=== PATIENT | male | born 1965 | race Caucasian/White ===

== ENCOUNTER 2025-05-15 17:49 | Inpatient (IN) | payer MEDICARE, MEDICAID, SELFPAY ==
--- NOTE | 2025-05-15 18:36 | EDNOTE_ITS ---
Altered Mental Status RME/HPI General Chief Complaint: Altered Mental Status Stated Complaint: ALTERED Time Seen by Provider: 05/15/25 18:34 Arrival date/time: 05/15/25 17:49 RME / HPI RME / HPI narrative: Dr. Carmona?s Main ED Evaluation: 59yo male with a history of dementia, DM, depression BIB [facility] presents to the ED for altered mental status. Per [facility], patient has not been taking his medications for the last 2 days. Patient was found in his cell today and noted to have urinated on himself, and appeared altered. Outpatient FSBS 129. Patient denies any nausea, vomiting, chest pain, abdominal pain. NKA. Related Data Previous Rx's ?Medication ?Instructions ?Recorded sulfamethoxazole 800 1 tab PO BID #14 tabs mg-trimethoprim 160 mg tablet (Bactrim DS) Allergies Allergy/AdvReac Type Severity Reaction Status Date / Time NKA* Allergy Uncoded 01/26/11 07:57 Review of Systems Review of Systems Systems Reviewed: All systems reviewed, normal except as documented Past Medical History Past Medical History CARDIAC: Negative Congestive Heart Failure RESPIRATORY: Negative Chronic Obstructive Pulmonary Disease (COPD) GENITOURINARY: Negative Renal Disease ENDOCRINE: Negative Diabetes Mellitus Type 1 or Diabetes Mellitus Type 2 Social History SMOKING STATUS: Former smoker ED Exam Narrative Physical exam: Generally patient is alert slightly somnolent but no obvious distress, head is normocephalic atraumatic, eyes pupils midrange at approximately 6 mm and equal bilaterally and reactive, head is normocephalic atraumatic, neck shows no JVD, heart regular rate and rhythm, lungs clear to auscultation equal bilaterally, abdomen soft bowel sounds present reducible periumbilical hernia. Very minimal diffuse tenderness without rebound. Neurologic exam shows patient be alert and oriented x 3 without focal motor deficits. No ataxia. Course Quality Measures none Orders Category Date Time Status EKG (ED ONLY) *Do not use* NOW Care 05/15/25 18:45 Completed Insert IV NOW Care 05/15/25 20:[address] head/brain wo con Stat Exams 05/15/25 18:43 Completed EKG (ED Only) Stat Exams 05/15/25 18:45 Draft Acetaminophen Stat Lab 05/15/25 18:56 Completed Alcohol, Blood Medical Stat Lab 05/15/25 18:56 Completed Ammonia Stat Lab 05/15/25 18:56 Completed Beta Hydroxybutyrate Stat Lab 05/15/25 20:27 Completed CBC Stat Lab 05/15/25 18:56 Completed CMP [Comprehensive Metabolic Panel] Stat Lab 05/15/25 18:56 Completed Drug Screen,Urine Stat Lab 05/15/25 19:40 Completed Lactic Acid [Lactate (Lactic Acid)] Stat Lab 05/15/25 20:27 Completed Salicylate Stat Lab 05/15/25 18:56 Completed TSH [Thyroid Stimulating Hormone] Stat Lab 05/15/25 18:56 Completed Troponin I Stat Lab 05/15/25 18:56 Completed UA [Urinalysis] Stat Lab 05/15/25 19:40 Completed VBG [Venous Blood Gas] Stat Lab 05/15/25 21:01 Ordered Sodium Chloride 0.9% 1000 ml [Ns] 1,000 ml Med 05/15/25 20:03 Discontinued IV 999 mls/hr Sodium Chloride 0.9% 1000 ml [Ns] 1,000 ml Med 05/15/25 20:05 Discontinued IV 999 mls/hr Vital Signs Vital signs: Vital Signs Temperature 98.4 F 05/15/25 19:02 Pulse Rate 79 05/15/25 19:02 Respiratory Rate 18 05/15/25 19:02 Blood Pressure 109/73 05/15/25 19:02 Pulse Oximetry (%) 95 05/15/25 19:02 Oxygen Delivery Method Room Air 05/15/25 19:02 Altered Mental Status MDM Narrative MDM Narrative:: Scribe Attestation: 05/15/25 Monika Matthews am scribing for and in the presence of Dr. Carmona. And interpreted all labs. Patient has a very slight increased anion gap metabolic acidosis. Beta hydroxybutyrate is elevated at 4.4. Patient denies vomiting. Blood sugar was 154. Patient is uremic with an elevated BUN and creatinine. This could be causing the patient's decreased mentation. CAT scan of the brain was negative. Patient was hydrated with 2 L of IV normal saline. I did discuss this case with the hospitalist and the patient will require admission to the hospital for further treatment and evaluation. EKG showed normal sinus rhythm at a rate of 71 with normal intervals. Patient data External records reviewed:: [facility] previous records (Per chart review, patient was seen here on 02/26/24 for infected open wound.) Clinical information provided by:: patient and law enforcement Social determinants that could affect healthcare access:: none Patient has the following chronic illnesses:: dementia, DM, depression How is presenting disease/condition affected by chronic disease/condition?: caused by Evaluation data The following diagnostics were reviewed and interpreted by me:: lab results, radiology exam(s) and EKG tracing(s) Lab and/or radiology exams considered but not ordered:: none Interpretation Summary: [facility] Report Signed Patient: SMITHA MICHELLE [facility]. Record#: [id number] Birthdate: 1965 Age/Sex: 59 / M Location: [facility] Attending Dr: Ordering Physician: Pipo Carmona DO Date of Service: 05/15/25 Procedure(s): CT head/brain wo con Accession Number(s): [id number] cc: Chano Veras MD; NO PRIMARY/FAMILY,PHYSICIAN; Pipo Carmona DO~ Examination: CT brain head without contrast. 2-D sagittal coronal reconstructions Date and time of exam:May 15, 2025, 1939 hrs. Indications: Altered mental status today CTDI: vol (mGy):55 DLP: (mGycm):1169 Technique: Multiple CT axial sections of the brain have been obtained, 5 mm slice thickness. Contrast has not been administered. 2-D sagittal, coronal reconstructions have been obtained Low dose protocols were performed. One or more of the following dose reduction techniques were used; automated exposure control, adjustment of the mA and/or KV according to patient size, use of iterative reconstruction technique. Findings: No significant ventricular enlargement. Intra-axial or extra-axial hemorrhage density is not seen. No mass effect or midline shift Basal cisterns are not remarkable. Fourth ventricle is midline. Cranial vault intact. Impression: Negative for acute hemorrhage, mass effect or midline shift Advise clinical correlation and follow-up accordingly Dictated By: Chano Veras MD Signed By: <Electronically signed by Chano Veras MD in OV> 05/15/251999 Medications / Prescriptions Medications or Prescriptions considered but not ordered:: none Medication administrations:: Medication Administration History Discontinued Medications Sodium Chloride (Ns) 1,000 mls @ 999 mls/hr IV .Q1H1M ONE Stop: 05/15/25 21:03 Last Admin: 05/15/25 20:14 Dose: 999 mls/hr Documented By: TEDDY Sodium Chloride (Ns) 1,000 mls @ 999 mls/hr IV .Q1H1M ONE Stop: 05/15/25 21:05 Last Admin: 05/15/25 20:15 Dose: 999 mls/hr Documented By: TEDDY see above Consultations Consultation(s) initiated? (list below): Yes Diagnosis Differential diagnosis altered mental status: other (See MDM.) Most likely diagnosis given after review of the tests above:: see clinical impression below Admission Indicated Admission indicated?: indicated Admission Request Was there a request for admission?: Yes Admission Attestation Admission request attestation: Discussed case with [] from Hospitalist service regarding admission. Discussed patients ED course, exam findings, labs, and radiology results. The Hospitalist [agrees,declines] to accept the patient for admission. Disposition Plan Disposition Plan: Admit Discharge Plan Plan Patient Disposition: Admit Acute Care w/in Hospital Prescriptions/Referrals Prescriptions/Med Rec: No Action sulfamethoxazole-trimethoprim [Bactrim DS] 800-160 mg tablet 1 tab PO BID Qty: 14 0RF Referrals: No Primary/Family,Physician [Primary Care Provider] - In 1 week Problem List Clinical Impression: Acute uremia, Dehydration Patient/Caregiver Discharge Instructions Print Language: Beninese Stand Alone Forms: Elizabeth Award Info., Patient Portal Info Letter
--- NOTE | 2025-05-15 18:43 | XR_ITS ---
Examination: CT brain head without contrast. 2-D sagittal coronal reconstructions Date and time of exam:May 15, 2025, 1939 hrs. Indications: Altered mental status today CTDI: vol (mGy):55 DLP: (mGycm):1169 Technique: Multiple CT axial sections of the brain have been obtained, 5 mm slice thickness. Contrast has not been administered. 2-D sagittal, coronal reconstructions have been obtained Low dose protocols were performed. One or more of the following dose reduction techniques were used; automated exposure control, adjustment of the mA and/or KV according to patient size, use of iterative reconstruction technique. Findings: No significant ventricular enlargement. Intra-axial or extra-axial hemorrhage density is not seen. No mass effect or midline shift Basal cisterns are not remarkable. Fourth ventricle is midline. Cranial vault intact. Impression: Negative for acute hemorrhage, mass effect or midline shift Advise clinical correlation and follow-up accordingly
--- NOTE | 2025-05-15 18:45 | EKG_ITS ---
[facility] Test Date: 2025-05-15 Pat Name: SMITHA MICHELLE Department: Room: - Gender: Male Clerical Specialist: : 1965 Requested By: Pipo Burciaga Order Number: [id number] Reading MD: Pipo Burciaga Measurements Intervals Harmon Rate: 71 P: -67 OK: 129 QRS: 35 QRSD: 90 T: 47 QT: 374 QTc: 407 Interpretive Statements JUNCTIONAL RHYTHM LOW QRS VOLTAGE IN PRECORDIAL LEADS [QRS DEFLECTION < 1.0 mV IN CHEST LEADS] ABNORMAL RHYTHM ECG No previous ECG available for comparison /store/S0/[id number]/ecg/[id number].pdf
[2025-05-15 18:49] VITALS: BMI 37.6
[2025-05-15 19:02] VITALS: BP 109/73; PULSE 79; RESP 18; TEMP 36.9; O2SAT 95
[2025-05-15 19:34] LABS: Acetaminophen < 2.0 mcg/mL (10.0-20.0); Alanine Aminotransferase 30 U/L (10-49); Albumin, Serum 5.2 gm/dL (3.4-4.8); Albumin/Globulin Ratio 1.7 (1.2-2.2); Alcohol, Blood Medical < 3.0 mg/dL (0-10.0); Alkaline Phosphatase 78 U/L (46-116); Ammonia < 10 uMol/L (11-32); Anion Gap 17 (7-16); Aspartate Amino Transferase 21 U/L (0-34); BUN/Creatinine Ratio 29 Ratio (12-20); Bilirubin,Total 0.7 mg/dL (0.3-1.2); Blood Urea Nitrogen 52 mg/dL (9-23); Calcium 10.2 mg/dL (8.3-10.6); Calcium (Corrected) 10.2 mg/dL (8.5-10.1); Carbon Dioxide 16.2 mMol/L (20.0-31.0); Chloride 108 mMol/L (98-107); Creatinine (Component) 1.8 mg/dL (0.6-1.3); Estimated Creatinine Clearance 54.7 mL/min (>60); Globulin 3.0 gm/dL (2.3-3.5); Glucose 152 mg/dL (74-106); Osmolality,Calculated 298 (275-295); Potassium 4.9 mMol/L (3.4-5.1); Salicylate < 3.0 mg/dL; Sodium 141 mMol/L (136-145); Thyroid Stimulating Hormone 0.91 uIU/mL (0.55-4.78); Total Protein 8.2 gm/dL (5.7-8.2); Troponin I < 0.020 ng/mL (0.0-0.045); eGFR 43 See Note
[2025-05-15 19:40] LABS: Basophils # (Auto) 0.1 Thou/mm3 (0.0-0.2); Basophils % (Auto) 1 % (0-2.5); Eosinophils # (Auto) 0.3 Thou/mm3 (0.0-0.5); Eosinophils % (Auto) 2 % (0-10); Hematocrit 36.5 % (41.0-53.0); Hemoglobin 12.2 g/dL (13.5-16.0); Immature Granulocytes Auto 0.05 Thou/mm3 (0.00-0.00); Lymphocytes # (Auto) 1.7 Thou/mm3 (1.0-4.8); Lymphocytes % (Auto) 14 % (10-50); Mean Corpuscular HGB Conc 33.4 g/dl (31.0-37.0); Mean Corpuscular Hemoglobin 32.4 pg (25.0-35.0); Mean Corpuscular Volume 97 fL (80-100); Monocytes # (Auto) 1.5 Thou/mm3 (0.0-0.8); Monocytes % (Auto) 13 % (0-12); Neutrophils # (Auto) 8.3 Thou/mm3 (1.8-7.7); Neutrophils % (Auto) 70 % (37-80); Nucleated Red Blood Cell # 0.00 Thou/mm3 (0.00-0.00); Nucleated Red Blood Cell % 0 /100 WBC (0); Platelet Count 327 Thou/mm3 (140-440); RDW Standard Deviation 58.1 fL (35.1-43.9); Red Blood Count 3.77 Miln/mm3 (4.50-5.90); White Blood Count 11.9 Thou/mm3 (3.8-10.6)
[2025-05-15 19:55] LABS: Collection Type, Urine Voided; Squamous Epithelial Cell,Urine 0 /hpf (0-5)
[2025-05-15 20:07] LABS: Bacteria,Urine Rare; Bilirubin,Urine Negative (Negative); Blood,Urine Negative (Negative); Clarity,Urine Turbid (Clear/Hazy); Color,Urine Yellow (Lt Yel-Yel); Glucose, Urine Negative (Negative); Hyaline Casts,Urine < 1 /hpf (0-1); Ketones,Urine 1+ (Negative); Leukocyte Esterase,Urine Negative (Negative); Nitrite,Urine Negative (Negative); PH,Urine 6.0 (5.0-7.0); Protein,Urine 1+ (Neg - Trace); RBC,Urine 3 /hpf (0-3); Specific Gravity,Urine 1.026 (1.001-1.035); Urobilinogen,Urine Negative mg/dL (0.0-1.0); WBC,Urine 1 /hpf (0-5)
[2025-05-15 20:14] LABS: Amphetamine/Methamp Scrn,U Negative (Negative); Barbiturate Screen,Urine Negative (Negative); Benzodiazepines Screen,Urine Negative (Negative); Benzoylecgonine Screen, Ur Negative (Negative); Fentanyl Screen,Urine Negative (Negative); Opiate Screen,Urine Negative (Negative); THC Screen,Urine Negative (Negative)
[2025-05-15] MEDS: SODIUM CHLORIDE 0.9% 1000 ML 1,000 ML 999 ML IV ×2 (20:14→20:15)
[2025-05-15 20:41] LABS: Lactate (Lactic Acid) 0.9 mMol/L (0.4-2.0)
[2025-05-15 20:56] LABS: Beta Hydroxybutyrate 4.4 mmol/L (<0.6)
[2025-05-15 21:15] LABS: Base Excess, Venous 18 (-3-3); O2 Saturation, Venous 69 % (96-97); PCO2, Venous 37 mmHg (36-56); PO2, Venous 39 mmHg (15-58); pH, Venous 7.29 (7.33-7.66)
--- NOTE | 2025-05-15 22:25 | PD.RESHP ---
Documentation for date of: 05/15/25 HPI History of Present Illness History of present illness: Mr. Malcolm is 59 year-old male with past medical history of type 2 diabetes, hypertension, major depressive disorder brought in in the custody of the [facility]) to ED on 05/15/2025 for altered mental status. Per [facility], for unknown reason, past few days patient has not been taking his medication, not interacting with his cellmate as usual. Prior to that patient was very engaged in the care of his daily needs, participate in group activities and compliant to medications. Per [facility], this morning patient found in his cell looking confused, not responding to questions and had a urinary incontinence. They noted no drooling, no diaphoresis, no blank stares, no seizure-like activity, no fecal incontinence. Patient has not been in contact with sick cell mate, no fever and no flulike symptoms prior to altered mentation. However per patient file, the nurse noted that he has unspecified dementia although he was not officially diagnosed. Upon evaluation patient mentation is altered but when asked he denies nausea, vomiting, diarrhea, constipation, chest pain, headache, dizziness, body aches, urinary symptoms. ED Course: -Initial vitals were within normal with BP of 109/73, pulse 79, RR 18, temp 98.4, saturating well on room air -Labs significant for leukocytosis of WBC 11.9, VBG pH 7.29, CHEM panel shows CO2 16.2, anion gap 17, bun 52, CR 1.8, eGFR 43, bun/Cr 29, glucose 152, calcium 10.2, ammonia <10, albumin 5.2, Beta-hydroxy 4.4. UA negative for UTI. UTOX is negative -Imaging included head CT negative for acute hemorrhage or midline shift. -In the ED, patient was given 3 L of NS. Patient mentation continued to be poor is unsure about these past medical history, medication. Patient does not recall what happening this before coming to the ED. He reports no active complaints at the moment. -Patient was admitted for acute encephalopathy evaluation and management. Review of Systems Review of systems otherwise negative except what is mentioned above. Past Medical History: Family History: Unable to obtain Surgical History: Unable to obtain due to patient mentation Social History: Arrested in January 2025 for attempted manslaughter and DUI. Daily smoker smoke prior to incarceration. Unable to assess for illicit drug use Current Medications: Seroquel 100 mg 1 tab per day, losartan 50 mg, Zoloft 50 mg 3 tab daily at bedtime, omeprazole 20 mg Allergies: No known drug allergies Exam Vital Signs Temp Pulse Resp BP Pulse Ox O2 Del Method 98.4 F 79 18 109/73 95 Room Air 05/15/25 19:02 05/15/25 19:02 05/15/25 19:02 05/15/25 19:02 05/15/25 19:02 05/15/25 19:02 Narrative Exam General: Alert, no acute distress.Conversational and non-toxic appearing. Skin: Warm, dry, intact. No rash or ecchymoses. Head: Normocephalic, atraumatic. Eye: pink conjunctivitis, PERRL. Throat: Oral mucosa moist. No obvious lesions in oropharynx. Cardiovascular: Regular rate and rhythm, no murmur, +S1/S2. Respiratory: Lungs are clear to auscultation, respirations unlabored, no crackles, no wheezing. Gastrointestinal: Umbilical hernia, left lower quadrant tenderness. Soft, nontender, non-distended. No guarding or rebound tenderness. Extremities: No edema, no cyanosis, no clubbing. Neuro: Alert and oriented x3.No focal deficits observed. No ataxia Psychiatric: Cooperative, appropriate affect Results: Labs 05/16/25 08:15 05/16/25 08:15 Labs: Short CBC 05/15/25 Range/Units 18:56 WBC 11.9 H (3.8-10.6) Thou/mm3 Hgb 12.2 L (13.5-16.0) g/dL Hct 36.5 L (41.0-53.0) % Plt Count 327 (140-440) Thou/mm3 BMP 05/15/25 18:56 Sodium 141 Potassium 4.9 Chloride 108 H Carbon Dioxide 16.2 L BUN 52 H Creatinine 1.8 H Glucose 152 H Calcium 10.2 Cardiac Enzymes 05/15/25 Range/Units 18:56 Troponin I < 0.020 (0.0-0.045) ng/mL Liver Function 05/15/25 Range/Units 18:56 Total Bilirubin 0.7 (0.3-1.2) mg/dL AST 21 (0-34) U/L ALT 30 (10-49) U/L Alkaline Phosphatase 78 (46-116) U/L Albumin 5.2 H (3.4-4.8) gm/dL Urine 05/15/25 Range/Units 19:40 Urine Color Yellow (Lt Yel-Yel) Urine Clarity Turbid A (Clear/Hazy) Urine pH 6.0 (5.0-7.0) Ur Specific [place] 1.026 (1.001-1.035) Urine Protein 1+ A (Neg - Trace) Urine Glucose (UA) Negative (Negative) ABG Interpretation ABG results: 05/15/25 20:27 VBG pH 7.29 L VBG pCO2 37 VBG pO2 39 VBG Base Excess 18 H Quality Measures Quality Measures VTE prophylaxis Medications Home Medications and Allergies Home Medications ?Medication ?Instructions ?Recorded ?Confirmed ?Type losartan 100 mg tablet (Cozaar) 100 mg PO QDAY 05/16/25 05/16/25 History metformin 500 mg tablet 1,000 mg PO BID 05/16/25 05/16/25 History omeprazole 20 mg capsule,delayed 20 mg PO QDAY 05/16/25 05/16/25 History release quetiapine 25 mg tablet (Seroquel) 50 mg PO QDAY 05/16/25 05/16/25 History sertraline 50 mg tablet (Zoloft) 150 mg PO Q24H 05/16/25 05/16/25 History Allergies Allergy/AdvReac Type Severity Reaction Status Date / Time NKA* Allergy Uncoded 01/26/11 07:57 Visit Medications Acetaminophen (Acetaminophen 325 Mg Tablet) 650 mg PO Q6H PRN PRN Reason: Fever >101.5 Stop: 06/14/25 22:04 Acetaminophen (Acetaminophen 325 Mg Tablet) 650 mg PO Q6H PRN PRN Reason: PAIN SCALE 1-3 (mild Stop: 06/14/25 22:04 Dextrose (Dextrose 50%-Water Inj 50 Ml Syringe) 25 ml IV Q15MIN PRN PRN Reason: BG 50-70 responsive npo pt Stop: 06/14/25 22:10 Dextrose (Dextrose 50%-Water Inj 50 Ml Syringe) 50 ml IV Q15MIN PRN PRN Reason: BG <50 OR BG <70 & pt unresponsive Stop: 06/14/25 22:10 Dextrose (Dextrose 50%-Water Inj 50 Ml Syringe) 25 ml IV Q15MIN PRN PRN Reason: BG 50-70 responsive npo pt Stop: 06/14/25 22:21 Dextrose (Dextrose 50%-Water Inj 50 Ml Syringe) 50 ml IV Q15MIN PRN PRN Reason: BG <50 OR BG <70 & pt unresponsive Stop: 06/14/25 22:21 Glucagon (Glucagon Inj 1 Mg Vial) 1 mg IM Q15MIN PRN PRN Reason: BG <70, and no IV access Glucagon (Glucagon Inj 1 Mg Vial) 1 mg IM Q15MIN PRN PRN Reason: BG <70, and no IV access Heparin Sodium (Porcine) (Heparin Sod Inj 5000 Unit/Ml Vial) 5,000 unit SC BID NATHALIA Stop: 05/30/25 08:59 Sodium Chloride (Ns) 1,000 mls @ 100 mls/hr IV .Q10H NATHALIA Stop: 06/14/25 22:29 Insulin Human Lispro (Insulin Lispro (Admelog) 1 Unit/0.01 Ml Unit) 0 unit [facility] NATHALIA; Protocol Stop: 06/15/25 07:29 Insulin Human Lispro (Insulin Lispro (Admelog) 1 Unit/0.01 Ml Unit) 0 unit [facility] NATHALIA; Protocol Stop: 06/15/25 07:29 Discontinued Medications Sodium Chloride (Ns) 1,000 mls @ 999 mls/hr IV .Q1H1M ONE Stop: 05/15/25 21:03 Last Infusion: 05/15/25 21:16 Dose: Infused Sodium Chloride (Ns) 1,000 mls @ 999 mls/hr IV .Q1H1M ONE Stop: 05/15/25 21:05 Last Infusion: 05/15/25 21:17 Dose: Infused Assessment & Plan Plan Mr. Malcolm is 59 year-old male with past medical history of type 2 diabetes, hypertension, major depressive disorder brought in in the custody of the [facility]) to ED on 05/15/2025 for altered mental status. Admitted for acute encephalopathy evaluation and management. #Acute encephalopathy DDX: infections, metabolic, toxins/drugs, electrolytes,uremia, seizure Per [facility] for the last few days patient mentation has been poor, low interaction, not eating properly and does not precipitate any daily activities. Low suspicion for infectious cause, although leukocytosis WBC 11.9, afebrile, no sick contacts, no urinary symptoms, vitals within normal limits ,UA negative FOR UTI. Not toxin/drugs related: UTOX negative, low concern for home medication toxicity. Not cause by electrolyte disturbance, sodium and potassium normal with mild hypercalcemia. HyperCa not high enough to cause AMS. Likely metabolic: Mild hyperglycemia 152 with mild anion gap metabolic acidosis with VBG 7.29, HCO3 16.2, AG 17. latic acid 0.9 High suspicion for uremic encephalopathy given the patient's renal panel, which is significant for PARISH, with a creatinine level of 1.8, a low GFR of 43, and a BUN/Cr ratio of 29. Additionally, the patient is exhibiting cognitive changes, including confusion and an altered level of consciousness, along with kidney dysfunction and a VBG showing metabolic acidosis?all of which support the diagnosis of uremic encephalopathy. - Continue to monitor mentation - EEG, to r/o possible seizures - Vit b12, folate - TSH - Neurology consulted, recommendation appreciated #PARISH #Anion gap metabolic acidosis #Acute Uremia PARISH in the setting of ongoing encephalopathy and dehydration. CR 1.8, low GFR 43. BUN/Cr 29 - Patient given 4L of IVF boluses -Avoid nephrotoxins - Monitor renal panel - Renally dosed medications - Hold any СВЕТЛАНА/ARB/diuretics #Vfu-vnxkcpa-tidljggac type 2 diabetes Per chart review have a history of diabetes. On admission glucose 126. home metformin 1000 PO BID - A1c, pending -Insulin sliding scale -Bedside glucose check ACHS #Primary hypertension History of hypertension managed with losartan 100 mg. On admission blood pressure with normal -Hold medication until PARISH improve #Major depressive disorder, resistant - home meds quetiapine 50 mg and setraline 150 mg - consider resuming when encepalopathy improves Hospital management: Lines: peripheral IV Diet: NPO DVT prophylaxis: Heparin SC Disposition: Med/tele AMS workup CODE STATUS: Full code Patient seen and assessed under supervision of attending physician and discuss with senior resident Dr. Lopez PGY-2 Geovanna Gill MD PGY-1, Internal Medicine Please note: this document was transcribed using voice recognition technology; minor inaccuracies may be present. Attending Provider Attestation/Addendum After examination of the patient and review of the clinical data I feel that this patient needs admission to the hospital for further treatment/evaluation. Plan of care discussed with patient and is in agreement. I Sylvia Calles MD, attest that I was physically present for james portions of evaluation, and examined patient, labs and imagings and plan of care were discussed with IM residents team, and I agree with the findings and plans documented above.
[2025-05-15] MEDS: SODIUM CHLORIDE 0.9% 1000 ML 1,000 ML 100 ML IV (22:47)
[2025-05-15 23:09] VITALS: BP 130/65; PULSE 63; RESP 19; TEMP 36.8; O2SAT 96
[2025-05-16] VITALS (9 sets, daily range): BP systolic 118–136; BP diastolic 56–82; PULSE 60–75; RESP 14–98; TEMP 35.9–36.4; O2SAT 94–98; BMI 35.0; BMI 35.2
--- NOTE | 2025-05-16 02:48 | RESP.EEG ---
EEG has been completed and is ready for MD interpretation
[2025-05-16] MEDS: RINGERS LACTATED 1000 ML 2,000 ML 999 ML IV (05:44)
[2025-05-16 06:45] LABS: Glucose Estimated Average 180 mg/dL (80-131); Hemoglobin A1C 7.9 % Hgb (4.8-6.0)
[2025-05-16 08:31] LABS: Basophils # (Auto) 0.1 Thou/mm3 (0.0-0.2); Basophils % (Auto) 1 % (0-2.5); Eosinophils # (Auto) 0.4 Thou/mm3 (0.0-0.5); Eosinophils % (Auto) 4 % (0-10); Hematocrit 29.6 % (41.0-53.0); Hemoglobin 9.8 g/dL (13.5-16.0); Immature Granulocytes Auto 0.06 Thou/mm3 (0.00-0.00); Lymphocytes # (Auto) 1.7 Thou/mm3 (1.0-4.8); Lymphocytes % (Auto) 18 % (10-50); Mean Corpuscular HGB Conc 33.1 g/dl (31.0-37.0); Mean Corpuscular Hemoglobin 32.1 pg (25.0-35.0); Mean Corpuscular Volume 97 fL (80-100); Monocytes # (Auto) 1.1 Thou/mm3 (0.0-0.8); Monocytes % (Auto) 12 % (0-12); Neutrophils # (Auto) 6.0 Thou/mm3 (1.8-7.7); Neutrophils % (Auto) 64 % (37-80); Nucleated Red Blood Cell # 0.00 Thou/mm3 (0.00-0.00); Nucleated Red Blood Cell % 0 /100 WBC (0); Platelet Count 258 Thou/mm3 (140-440); RDW Standard Deviation 58.5 fL (35.1-43.9); Red Blood Count 3.05 Miln/mm3 (4.50-5.90); White Blood Count 9.3 Thou/mm3 (3.8-10.6)
[2025-05-16 08:59] LABS: Vitamin B12 499 pg/mL (211-911)
[2025-05-16 09:01] LABS: Albumin, Serum 3.9 gm/dL (3.4-4.8); BUN/Creatinine Ratio 32 Ratio (12-20); Blood Urea Nitrogen 38 mg/dL (9-23); Calcium 8.7 mg/dL (8.3-10.6); Calcium (Corrected) 8.8 mg/dL (8.5-10.1); Chloride 113 mMol/L (98-107); Creatinine (Component) 1.2 mg/dL (0.6-1.3); Estimated Creatinine Clearance 79.2 mL/min (>60); Glucose 126 mg/dL (74-106); Magnesium 1.4 mg/dL (1.6-2.6); Osmolality,Calculated 301 (275-295); Phosphorous 2.4 mg/dL (2.4-5.1); Potassium 4.7 mMol/L (3.4-5.1); Sodium 146 mMol/L (136-145); eGFR > 60 See Note
[2025-05-16 09:09] LABS: Anion Gap 12 (7-16); Carbon Dioxide 21.1 mMol/L (20.0-31.0)
[2025-05-16] MEDS: THIAMINE INJ 100 MG/ML VIAL 2 ML 200 MG IVP (09:14)
[2025-05-16] MEDS: HEPARIN SOD INJ 5000 UNIT/ML VIAL SC ×2 (09:15→21:35)
[2025-05-16] MEDS: SODIUM CHLORIDE 0.9% 1000 ML 1,000 ML 100 ML IV ×2 (09:28→19:37)
[2025-05-16 10:42] LABS: Creatine Kinase 266 U/L (34-171)
--- NOTE | 2025-05-16 10:42 | PC.SS ---
Patient Gerri Malcolm is a 59 Year old male admitted for Acute Encephalopathy. Patient came from [facility]. SS met with patient at bedside as well as officer from [facility]. Patient appeared to be alert and oriented. Patient was able to verify demographic information. Patient reports he is able to complete all ADL's independently and able to perform all ADLs. Patient reports his surrogate decision maker is his daughter, Magdalena Malcolm [phone]. At time of discharge patient will return back to [facility]. Discharge plan: [facility] Next of kin: Daughter, Ale Malcolm
--- NOTE | 2025-05-16 11:04 | ESPR_ITS ---
<Statement entered by Juvencio Mondragon MD - 05/21/25 09:12> I reviewed above note and agree with findings and plans. I have also personally examined the patient with medicine team and went over assessment and plan with medical team including editing intern and resident physician. <Statement entered by Brea Rainey MD - 05/16/25 16:03> I discussed with and supervised the editing intern physician who took care of this patient. I personally saw and examined the patient and discussed the assessment and plan with the entire medicine team, including my attending Dr. Mondragon, I agree with most of the assessment and plan as documented below Brea Rainey M.D. PGY-3 Documentation for date of: 05/16/25 Subjective Subjective Interval history: Patient examined at bedside, NAOE. Patient A&O x4, states he stopped taking his meds but refuses to disclose why. States he feels pretty close to normal. Officer who has worked with him before states this is not his baseline. After 3L NS given in the ED, PARISH resloved, BUN 52 to 38 and Cr 1.8 to 1.2. Elevated WBC at 11.9 but no fever, UA negative. Utox also negative. Lacate negative at 0.9. Negative CT head and EKG unremarkable. Pending EEG. Neurology consulted for recommendations. Exam Vital Signs Temp Pulse Resp BP Pulse Ox O2 Del Method 97.6 F 65 18 124/75 98 Room Air 05/16/25 07:52 05/16/25 07:52 05/16/25 07:52 05/16/25 07:52 05/16/25 07:52 05/16/25 07:52 Narrative Exam General: Elderly aged patient, laying flat in bed with ankle cuff in place, somnolent, keeps eyes closed during conversation. HEENT: Mucosa somewhat moist. Pupils are equal and reactive to light bilaterally Cardiovascular: Normal S1 and S2. Regular rate and rhythm. No murmur appreciated Respiratory: Clear to auscultation bilaterally without wheezes or crackles. Abdomen: Soft, nontender, not distended, Skin: Dry, no rashes or bruising Musculoskeletal: No gross injuries. Non edematous lower extremities. No irritation noted from the ankle cuff. Neuro: Alert and oriented x4. No focal neuro deficits. Psych: Flat affect Objective Labs 05/16/25 08:15 05/16/25 08:15 Labs: Laboratory Results - last 24 hr 05/15/25 05/15/25 05/15/25 18:56 19:40 20:27 WBC 11.9 H RBC 3.77 L Hgb 12.2 L Hct 36.5 L MCV 97 MCH 32.4 MCHC 33.4 RDW Std Deviation 58.1 H Plt Count 327 Neut % (Auto) 70 Lymph % (Auto) 14 [place] % (Auto) 13 H Eos % (Auto) 2 Baso % (Auto) 1 Neut # (Auto) 8.3 H Lymph # (Auto) 1.7 [place] # (Auto) 1.5 H Eos # (Auto) 0.3 Baso # (Auto) 0.1 Immature Gran # (Auto) 0.05 H Absolute Nucleated RBC 0.00 Immature Gran % 0 Nucleated RBC % 0 VBG pH 7.29 L VBG pCO2 37 VBG pO2 39 VBG O2 Sat ([place]) 69 L VBG Base Excess 18 H Sodium 141 Potassium 4.9 Chloride 108 H Carbon Dioxide 16.2 L Anion Gap 17 H BUN 52 H Creatinine 1.8 H Estim Creat Clear Calc 54.7 L eGFR 43 L BUN/Creatinine Ratio 29 H Glucose [address] Glu mg/dL Hemoglobin A1c Calculated Osmolality 298 H Lactic Acid 0.9 Calcium 10.2 Corrected Calcium 10.2 H Phosphorus Magnesium Total Bilirubin 0.7 AST 21 ALT 30 Alkaline Phosphatase 78 Ammonia < 10 L Total Creatine Kinase Troponin I < 0.020 Total Protein 8.2 Albumin 5.2 H Globulin 3.0 Albumin/Globulin Ratio 1.7 Vitamin B12 Beta-Hydroxybutyrate/Acetoacetate 4.4 H TSH 0.91 Ur Collection Type Voided Urine Color Yellow Urine Clarity Turbid A Urine pH 6.0 Ur Specific [place] 1.026 Urine Protein 1+ A Urine Glucose (UA) Negative Urine Ketones 1+ A Urine Blood Negative Urine Nitrite Negative Urine Bilirubin Negative Urine Urobilinogen (Auto) Negative Ur Leukocyte Esterase Negative Urine RBC 3 Urine WBC 1 Ur Squamous Epith Cells 0 Urine Bacteria Rare Hyaline Casts < 1 Salicylates < 3.0 Urine Opiates Screen Negative Urine Fentanyl Screen Negative Acetaminophen < 2.0 L Ur Barbiturates Screen Negative U Amphetamin/Meth Scrn Negative U Benzodiazepines Scrn Negative U Cocaine Metab Screen Negative U Marijuana (THC) Screen Negative Ethyl Alcohol < 3.0 05/16/25 05/16/25 05:43 08:15 WBC 9.3 RBC 3.05 L Hgb 9.8 L D Hct 29.6 L MCV 97 MCH 32.1 MCHC 33.1 RDW Std Deviation 58.5 H Plt Count 258 D Neut % (Auto) 64 Lymph % (Auto) 18 [place] % (Auto) 12 Eos % (Auto) 4 Baso % (Auto) 1 Neut # (Auto) 6.0 Lymph # (Auto) 1.7 [place] # (Auto) 1.1 H Eos # (Auto) 0.4 Baso # (Auto) 0.1 Immature Gran # (Auto) 0.06 H Absolute Nucleated RBC 0.00 Immature Gran % 1 H Nucleated RBC % 0 VBG pH VBG pCO2 VBG pO2 VBG O2 Sat ([place]) VBG Base Excess Sodium 146 H Potassium 4.7 Chloride 113 H Carbon Dioxide 21.1 Anion Gap 12 BUN 38 H Creatinine 1.2 D Estim Creat Clear Calc 79.2 eGFR > 60 BUN/Creatinine Ratio 32 H Glucose [address] Glu mg/dL 180 H Hemoglobin A1c 7.9 H Calculated Osmolality 301 H Lactic Acid Calcium 8.7 D Corrected Calcium 8.8 Phosphorus 2.4 Magnesium 1.4 L Total Bilirubin AST ALT Alkaline Phosphatase Ammonia Total Creatine Kinase 266 H Troponin I Total Protein Albumin 3.9 D Globulin Albumin/Globulin Ratio Vitamin B12 499 Beta-Hydroxybutyrate/Acetoacetate TSH Ur Collection Type Urine Color Urine Clarity Urine pH Ur Specific [place] Urine Protein Urine Glucose (UA) Urine Ketones Urine Blood Urine Nitrite Urine Bilirubin Urine Urobilinogen (Auto) Ur Leukocyte Esterase Urine RBC Urine WBC Ur Squamous Epith Cells Urine Bacteria Hyaline Casts Salicylates Urine Opiates Screen Urine Fentanyl Screen Acetaminophen Ur Barbiturates Screen U Amphetamin/Meth Scrn U Benzodiazepines Scrn U Cocaine Metab Screen U Marijuana (THC) Screen Ethyl Alcohol ABG Interpretation ABG results: 05/15/25 20:27 VBG pH 7.29 L VBG pCO2 37 VBG pO2 39 VBG Base Excess 18 H Quality Measures Quality Measures none Assessment & Plan Assessment Current Active Medications: Generic Name Dose Route Start Last Admin Trade Name Freq PRN Reason Stop Dose Admin Acetaminophen 650 mg 05/15/25 22:05 Acetaminophen 325 Mg Tablet PO 06/14/25 22:04 Q6H PRN Fever >101.5 Acetaminophen 650 mg 05/15/25 22:05 Acetaminophen 325 Mg Tablet PO 06/14/25 22:04 Q6H PRN PAIN SCALE 1-3 (mild Dextrose 25 ml 05/15/25 22:22 Dextrose 50%-Water Inj 50 Ml Syringe IV 06/14/25 22:21 Q15MIN PRN BG 50-70 responsive npo pt Dextrose 50 ml 05/15/25 22:22 Dextrose 50%-Water Inj 50 Ml Syringe IV 06/14/25 22:21 Q15MIN PRN BG <50 OR BG <70 & pt unresponsive Glucagon 1 mg 05/15/25 22:22 Glucagon Inj 1 Mg Vial IM Q15MIN PRN BG <70, and no IV access Heparin Sodium (Porcine) 5,000 unit 05/16/25 09:00 05/16/25 09:15 Heparin Sod Inj 5000 Unit/Ml Vial SC 05/30/25 08:59 5,000 unit BID NATHALIA Administration Sodium Chloride 1,000 mls @ 100 mls/hr 05/15/25 22:30 05/16/25 09:28 Ns IV 06/14/25 22:29 100 mls/hr .Q10H NATHALIA Administration Insulin Human Lispro 0 unit 05/16/25 07:30 05/16/25 07:32 Insulin Lispro (Admelog) 1 Unit/0.01 Ml Unit SC 06/15/25 07:29 Not Given ACHS ON LICENSE OF [facility] Protocol Thiamine HCl 200 mg 05/16/25 09:00 05/16/25 09:14 Thiamine Inj 100 Mg/Ml Vial 2 Ml IVP 06/15/25 08:59 200 mg QDAY NATHALIA Administration Plan Mr. Malcolm is 59 year-old male with past medical history of type 2 diabetes, hypertension, major depressive disorder brought in in the custody of the [facility] ([facility]) to ED on 05/15/2025 for altered mental status. Admitted for acute encephalopathy evaluation and management. #Acute encephalopathy #Metabolic Gap Acidosis #PARISH, likely prerenal secondary to PARISH in the setting of ongoing encephalopathy and dehydration. DDX: infections, metabolic, toxins/drugs, electrolytes,uremia, seizure Per [facility] for the last few days patient mentation has been poor, low interaction, not eating properly and does not precipitate any daily activities. Low suspicion for infectious cause, although leukocytosis WBC 11.9, afebrile, no sick contacts, no urinary symptoms, vitals within normal limits ,UA negative FOR UTI. Not toxin/drugs related: UTOX negative, low concern for home medication toxicity. Not cause by electrolyte disturbance, sodium and potassium normal with mild hypercalcemia. HyperCa not high enough to cause AMS. Likely metabolic: Mild hyperglycemia 152 with mild anion gap metabolic acidosis with VBG 7.29, HCO3 16.2, AG 17. latic acid 0.9 Possible uremic encephalopathy given the patient's renal panel, which is significant for PARISH, with a creatinine level of 1.8, a low GFR of 43, and a BUN/Cr ratio of 29. Additionally, the patient is exhibiting cognitive changes, including confusion and an altered level of consciousness, along with kidney dysfunction and a VBG showing metabolic acidosis?all of which support the diagnosis of uremic encephalopathy. CR 1.8, low GFR 43. BUN/Cr 29 however now Cr 1.2 with BUN 38. PARISH improving along with some improvement of mentation. Seizure not ruled out given somnolent nature. - Pending EEG - Swallow screen, - Neurology consultation. Appreciate recommendations. -Avoid nephrotoxins -Monitor renal panel -Renally dosed medications -Hold any СВЕТЛАНА/ARB/diuretics #Primary hypertension History of hypertension managed with losartan 100 mg. On admission blood pressure with normal -Hold medication for now. #Major depressive disorder, resistant - home meds quetiapine 50 mg and setraline 150 mg - hold medications for now until resolution of encephalopathy. Hospital management: Lines: peripheral IV Diet: NPO pending swallow study. DVT prophylaxis: Heparin SC Disposition: Med/tele AMS workup CODE STATUS: Full code Patient's plan and care discussed with my attending, MD Burke Gonzalez, PGY-1 ([facility] Resident)
--- NOTE | 2025-05-16 11:16 | ESCONSULT_ITS ---
HPI Data of Consult Requesting Physician: Juvencio Mondragon MD Admitting Provider: Sylvia Calles MD Attending Provider: Juvencio Mondragon MD Primary Care Provider: Physician No Primary/Family Consult Narrative History of present illness: HPI is limited at this time and mainly obtained from chart review as patient does not want to speak Mr. Malcolm is 59 year-old male with past medical history of type 2 diabetes, hypertension, major depressive disorder brought in in the custody of the [facility]) to ED on 05/15/2025 for altered mental status. Per [facility], for unknown reason, past few days patient has not been taking his medication, not interacting with his cellmate as usual. Prior to that patient was very engaged in the care of his daily needs, participate in group activities and compliant to medications. Per [facility], this morning patient found in his cell looking confused, not responding to questions and had a urinary incontinence. They noted no drooling, no diaphoresis, no blank stares, no seizure-like activity, no fecal incontinence. Patient has not been in contact with sick cell mate, no fever and no flulike symptoms prior to altered mentation. However per patient file, the nurse noted that he has unspecified dementia although he was not officially diagnosed. Upon evaluation patient mentation is altered but when asked he denies nausea, vomiting, diarrhea, constipation, chest pain, headache, dizziness, body aches, urinary symptoms. Patient reports that he has not been taking his medicines including Seroquel and Zoloft, however does not want to disclose why he has not been taking these medicines. ED Course: Initial vitals were within normal with BP of 109/73, pulse 79, RR 18, temp 98.4, saturating well on room air. Labs significant for leukocytosis of WBC 11.9, VBG pH 7.29, CHEM panel shows CO2 16.2, anion gap 17, bun 52, CR 1.8, eGFR 43, bun/Cr 29, glucose 152, calcium 10.2, ammonia <10, albumin 5.2, Beta-hydroxy 4.4. UA negative for UTI. UTOX is negative. Imaging included head CT negative for acute hemorrhage or midline shift. In the ED, patient was given 3 L of NS. Patient mentation continued to be poor is unsure about these past medical history, medication. Patient does not recall what happening this before coming to the ED. He reports no active complaints at the moments. Patient was admitted for acute encephalopathy evaluation and management. PMHx: As above Surgeries: Unknown at this time Meds: Zoloft, losartan, omeprazole, Seroquel Allergies:NKDA Family Hx: Unable to obtain at this time Social Hx:Arrested in January 2025 for attempted manslaughter and DUI. Daily smoker smoke prior to incarceration. Unable to assess for illicit drug use cc:: cc: Juvencio Mondragon MD Review of Systems Review of Systems Narrative Review of Systems: 12 point ROS reviewed and is otherwise negative unless stated directly in the HPI Exam Vital Signs Temp Pulse Resp BP Pulse Ox O2 Del Method 97.6 F 65 18 124/75 98 Room Air 05/16/25 07:52 05/16/25 07:52 05/16/25 07:52 05/16/25 07:52 05/16/25 07:52 05/16/25 07:52 Narrative Exam General: Elderly aged patient, laying flat in bed with ankle cuff in place, somnolent, keeps eyes closed during conversation. HEENT: Mucosa somewhat moist. Pupils are equal and reactive to light bilaterally Cardiovascular: Normal S1 and S2. Regular rate and rhythm. No murmur appreciated Respiratory: Clear to auscultation bilaterally without wheezes or crackles. Abdomen: Soft, nontender, not distended, Skin: Dry, no rashes or bruising Musculoskeletal: No gross injuries. Non edematous lower extremities. No irritation noted from the ankle cuff. Neuro: Alert and oriented x4. No focal neuro deficits. Psych: Flat affect Results Labs 05/17/25 04:25 05/17/25 04:25 Labs: Short CBC 05/15/25 05/16/25 Range/Units 18:56 08:15 WBC 11.9 H 9.3 (3.8-10.6) Thou/mm3 Hgb 12.2 L 9.8 L D (13.5-16.0) g/dL Hct 36.5 L 29.6 L (41.0-53.0) % Plt Count 327 258 D (140-440) Thou/mm3 BMP 05/15/25 05/16/25 18:56 08:15 Sodium 141 146 H Potassium 4.9 4.7 Chloride 108 H 113 H Carbon Dioxide 16.2 L 21.1 BUN 52 H 38 H Creatinine 1.8 H 1.2 D Glucose 152 H 126 H Calcium 10.2 8.7 D Cardiac Enzymes 05/15/25 05/16/25 Range/Units 18:56 08:15 Total Creatine Kinase 266 H (34-171) U/L Troponin I < 0.020 (0.0-0.045) ng/mL Liver Function 05/15/25 05/16/25 Range/Units 18:56 08:15 Total Bilirubin 0.7 (0.3-1.2) mg/dL AST 21 (0-34) U/L ALT 30 (10-49) U/L Alkaline Phosphatase 78 (46-116) U/L Albumin 5.2 H 3.9 D (3.4-4.8) gm/dL Urine 05/15/25 Range/Units 19:40 Urine Color Yellow (Lt Yel-Yel) Urine Clarity Turbid A (Clear/Hazy) Urine pH 6.0 (5.0-7.0) Ur Specific [place] 1.026 (1.001-1.035) Urine Protein 1+ A (Neg - Trace) Urine Glucose (UA) Negative (Negative) ABG Interpretation ABG results: 05/15/25 20:27 VBG pH 7.29 L VBG pCO2 37 VBG pO2 39 VBG Base Excess 18 H Quality Measures Quality Measures none Medications Home Medications and Allergies Home Medications ?Medication ?Instructions ?Recorded ?Confirmed ?Type losartan 100 mg tablet (Cozaar) 100 mg PO QDAY 5 05/16/25 History metformin 500 mg tablet 1,000 mg PO BID 05/16/25 History omeprazole 20 mg capsule,delayed 20 mg PO QDAY 5 05/16/25 History release quetiapine 25 mg tablet (Seroquel) 50 mg PO QDAY 05/1605/16/25 History sertraline 50 mg tablet (Zoloft) 150 mg PO Q24H 05/16/25 History Allergies Allergy/AdvReac Type Severity Reaction Status Date / Time NKA* Allergy Uncoded 01/26/11 07:57 Visit Medications Acetaminophen (Acetaminophen 325 Mg Tablet) 650 mg PO Q6H PRN PRN Reason: Fever >101.5 Stop: 06/14/25 22:04 Acetaminophen (Acetaminophen 325 Mg Tablet) 650 mg PO Q6H PRN PRN Reason: PAIN SCALE 1-3 (mild Stop: 06/14/25 22:04 Dextrose (Dextrose 50%-Water Inj 50 Ml Syringe) 25 ml IV Q15MIN PRN PRN Reason: BG 50-70 responsive npo pt Stop: 06/14/25 22:21 Dextrose (Dextrose 50%-Water Inj 50 Ml Syringe) 50 ml IV Q15MIN PRN PRN Reason: BG <50 OR BG <70 & pt unresponsive Stop: 06/14/25 22:21 Glucagon (Glucagon Inj 1 Mg Vial) 1 mg IM Q15MIN PRN PRN Reason: BG <70, and no IV access Heparin Sodium (Porcine) (Heparin Sod Inj 5000 Unit/Ml Vial) 5,000 unit SC BID [facility] Stop: 05/30/25 08:59 Last Admin: 05/16/25 09:15 Dose: 5,000 unit Sodium Chloride (Ns) 1,000 mls @ 100 mls/hr IV .Q10H [facility] Stop: 06/14/25 22:29 Last Admin: 05/16/25 09:28 Dose: 100 mls/hr Insulin Human Lispro (Insulin Lispro (Admelog) 1 Unit/0.01 Ml Unit) 0 unit SC [facility]; Protocol Stop: 06/15/25 07:29 Last Admin: 05/16/25 07:32 Dose: Not Given Thiamine HCl (Thiamine Inj 100 Mg/Ml Vial 2 Ml) 200 mg IVP QDAY [facility] Stop: 06/15/25 08:59 Last Admin: 05/16/25 09:14 Dose: 200 mg Discontinued Medications Dextrose (Dextrose 50%-Water Inj 50 Ml Syringe) 25 ml IV Q15MIN PRN PRN Reason: BG 50-70 responsive npo pt Stop: 06/14/25 22:10 Dextrose (Dextrose 50%-Water Inj 50 Ml Syringe) 50 ml IV Q15MIN PRN PRN Reason: BG <50 OR BG <70 & pt unresponsive Stop: 06/14/25 22:10 Glucagon (Glucagon Inj 1 Mg Vial) 1 mg IM Q15MIN PRN PRN Reason: BG <70, and no IV access Sodium Chloride (Ns) 1,000 mls @ 999 mls/hr IV .Q1H1M ONE Stop: 05/15/25 21:03 Last Infusion: 05/15/25 21:16 Dose: Infused Sodium Chloride (Ns) 1,000 mls @ 999 mls/hr IV .Q1H1M ONE Stop: 05/15/25 21:05 Last Infusion: 05/15/25 21:17 Dose: Infused Lactated Ringer's (Lactated Ringers) 2,000 mls @ 999 mls/hr IV .Q2H1M ONE Stop: 05/16/25 07:27 Last Admin: 05/16/25 05:44 Dose: 999 mls/hr Insulin Human Lispro (Insulin Lispro (Admelog) 1 Unit/0.01 Ml Unit) 0 unit SC [facility]; Protocol Stop: 06/15/25 07:29 Assessment & Plan Plan Assessment: Mr. Malcolm is 59 year-old male with past medical history of type 2 diabetes, hypertension, major depressive disorder brought in in the custody of the [facility]) to ED on 05/15/2025 for altered mental status. Admitted for acute encephalopathy evaluation and management. #Acute encephalopathy PARISH in the setting of ongoing encephalopathy and dehydration. DDX: infections, metabolic, toxins/drugs, electrolytes,uremia, seizure Per [facility] for the last few days patient mentation has been poor, low interaction, not eating properly and does not precipitate any daily activities. Low suspicion for infectious cause, although leukocytosis WBC 11.9, afebrile, no sick contacts, no urinary symptoms, vitals within normal limits ,UA negative FOR UTI. Not toxin/drugs related: UTOX negative, low concern for home medication toxicity. Not cause by electrolyte disturbance, sodium and potassium normal with mild hypercalcemia. HyperCa not high enough to cause AMS. Likely metabolic: Mild hyperglycemia 152 with mild anion gap metabolic acidosis with VBG 7.29, HCO3 16.2, AG 17. latic acid 0.9 Unlikely uremic encephalopathy as patient had slight uremia in the 50s Patient seems to display flat affect He reports that he was not taking his home medicines for unknown apparent reason as he did not want to disclose B12 and folate WNL UDS negative Plan: ? EEG ? Seizure precautions ? Recommend to resume home Zoloft and Seroquel ? Syphilis Treponema ? Neurochecks every 4 hours ? Follow-up with blood cultures #Metabolic Gap Acidosis #PARISH, likely prerenal secondary to #Primary hypertension #Major depressive disorder, resistant Above handled by primary hospitalist team Patient seen and care discussed with my attending physician, Dr. Redd Kaur, PGY-2 This document was transcribed using voice recognition technology. Minor inaccuracies may be present. Attending Provider Attestation/Addendum I personally have seen and examined the patient at the bedside and I agreed with the resident's findings, assessment and plan of care. The patient's mental status is close to baseline but has flat affect from underlying depression not being compliant with the medications. He is not suicidal. will follow-up with the EEG. Continue with Seroquel and sertraline and advised him about the importance of compliance.
--- NOTE | 2025-05-16 12:30 | PC.SS ---
SS follow up note; Patient is pending an EEG and Neuro Recommendations. Patient will discharge back to [facility] when medically cleared.
[2025-05-16 19:41] LABS: Syphilis Nonreactive (Nonreactive)
[2025-05-17] VITALS: BP 137/78; PULSE 61; PULSE 69; RESP 13; TEMP 36.1; O2SAT 96
[2025-05-17 04:00] VITALS: BP 153/84; PULSE 56; PULSE 66; RESP 16; TEMP 36.1; O2SAT 95
[2025-05-17 05:09] LABS: Basophils # (Auto) 0.1 Thou/mm3 (0.0-0.2); Basophils % (Auto) 1 % (0-2.5); Eosinophils # (Auto) 0.4 Thou/mm3 (0.0-0.5); Eosinophils % (Auto) 5 % (0-10); Hematocrit 31.3 % (41.0-53.0); Hemoglobin 10.1 g/dL (13.5-16.0); Immature Granulocytes Auto 0.04 Thou/mm3 (0.00-0.00); Lymphocytes # (Auto) 2.3 Thou/mm3 (1.0-4.8); Lymphocytes % (Auto) 26 % (10-50); Mean Corpuscular HGB Conc 32.3 g/dl (31.0-37.0); Mean Corpuscular Hemoglobin 31.9 pg (25.0-35.0); Mean Corpuscular Volume 99 fL (80-100); Monocytes # (Auto) 0.9 Thou/mm3 (0.0-0.8); Monocytes % (Auto) 10 % (0-12); Neutrophils # (Auto) 5.2 Thou/mm3 (1.8-7.7); Neutrophils % (Auto) 58 % (37-80); Nucleated Red Blood Cell # 0.00 Thou/mm3 (0.00-0.00); Nucleated Red Blood Cell % 0 /100 WBC (0); Platelet Count 260 Thou/mm3 (140-440); RDW Standard Deviation 58.4 fL (35.1-43.9); Red Blood Count 3.17 Miln/mm3 (4.50-5.90); White Blood Count 8.9 Thou/mm3 (3.8-10.6)
[2025-05-17 05:19] VITALS: BMI 36.0
[2025-05-17 05:39] LABS: Alanine Aminotransferase 23 U/L (10-49); Albumin, Serum 4.0 gm/dL (3.4-4.8); Albumin/Globulin Ratio 1.5 (1.2-2.2); Alkaline Phosphatase 65 U/L (46-116); Anion Gap 12 (7-16); Aspartate Amino Transferase 21 U/L (0-34); BUN/Creatinine Ratio 22 Ratio (12-20); Bilirubin,Total 0.7 mg/dL (0.3-1.2); Blood Urea Nitrogen 22 mg/dL (9-23); Calcium 9.2 mg/dL (8.3-10.6); Calcium (Corrected) 9.2 mg/dL (8.5-10.1); Carbon Dioxide 22.4 mMol/L (20.0-31.0); Chloride 112 mMol/L (98-107); Creatinine (Component) 1.0 mg/dL (0.6-1.3); Estimated Creatinine Clearance 94.6 mL/min (>60); Globulin 2.6 gm/dL (2.3-3.5); Glucose 88 mg/dL (74-106); Magnesium 1.3 mg/dL (1.6-2.6); Osmolality,Calculated 292 (275-295); Phosphorous 2.4 mg/dL (2.4-5.1); Potassium 4.4 mMol/L (3.4-5.1); Sodium 146 mMol/L (136-145); Total Protein 6.6 gm/dL (5.7-8.2); eGFR > 60 See Note
[2025-05-17] MEDS: SODIUM CHLORIDE 0.9% 1000 ML 1,000 ML 100 ML IV (05:39)
[2025-05-17 08:00] VITALS: BP 149/86; PULSE 63; PULSE 71; RESP 14; TEMP 36.1; O2SAT 98
[2025-05-17] MEDS: Magnesium Sulfate 4 GM Ivpb 4 GM/50 ML BAG IV (08:10)
[2025-05-17] MEDS: HEPARIN SOD INJ 5000 UNIT/ML VIAL SC (08:11)
[2025-05-17] MEDS: THIAMINE INJ 100 MG/ML VIAL 2 ML 200 MG IVP (08:11)
[2025-05-17] MEDS: SERTRALINE HCL 25 MG TABLET 150 MG PO (08:12)
--- NOTE | 2025-05-17 09:36 | PD.RESPRO ---
Documentation for date of: 05/17/25 Subjective Subjective Interval history: Patient examined at bedside, NAOE. Exam Vital Signs Temp Pulse Resp BP Pulse Ox O2 Del Method 96.9 F 63 14 149/86 H 98 Room Air 05/17/25 08:00 05/17/25 08:00 05/17/25 08:00 05/17/25 08:00 05/17/25 08:00 05/17/25 08:00 Objective Labs 05/17/25 04:25 05/17/25 04:25 Labs: Laboratory Results - last 24 hr 05/16/25 05/16/25 05/17/25 08:15 17:50 04:25 WBC 8.9 RBC 3.17 L Hgb 10.1 L Hct 31.3 L MCV 99 MCH 31.9 MCHC 32.3 RDW Std Deviation 58.4 H Plt Count 260 Neut % (Auto) 58 Lymph % (Auto) 26 [place] % (Auto) 10 Eos % (Auto) 5 Baso % (Auto) 1 Neut # (Auto) 5.2 Lymph # (Auto) 2.3 [place] # (Auto) 0.9 H Eos # (Auto) 0.4 Baso # (Auto) 0.1 Immature Gran # (Auto) 0.04 H Absolute Nucleated RBC 0.00 Immature Gran % 0 Nucleated RBC % 0 Sodium 146 H Potassium 4.4 Chloride 112 H Carbon Dioxide 22.4 Anion Gap 12 BUN 22 Creatinine 1.0 Estim Creat Clear Calc 94.6 eGFR > 60 BUN/Creatinine Ratio 22 H Glucose 88 Calculated Osmolality 292 Calcium 9.2 Corrected Calcium 9.2 Phosphorus 2.4 Magnesium 1.3 L Total Bilirubin 0.7 AST 21 ALT 23 Alkaline Phosphatase 65 Total Creatine Kinase 266 H Total Protein 6.6 Albumin 4.0 Globulin 2.6 Albumin/Globulin Ratio 1.5 Syphilis Serology Nonreactive ABG Interpretation ABG results: 05/15/25 20:27 VBG pH 7.29 L VBG pCO2 37 VBG pO2 39 VBG Base Excess 18 H Quality Measures Quality Measures VTE prophylaxis Assessment & Plan Assessment Current Active Medications: Generic Name Dose Route Start Last Admin Trade Name Freq PRN Reason Stop Dose Admin Acetaminophen 650 mg 05/15/25 22:05 Acetaminophen 325 Mg Tablet PO 06/14/25 22:04 Q6H PRN Fever >101.5 Acetaminophen 650 mg 05/15/25 22:05 Acetaminophen 325 Mg Tablet PO 06/14/25 22:04 Q6H PRN PAIN SCALE 1-3 (mild Dextrose 25 ml 05/15/25 22:22 Dextrose 50%-Water Inj 50 Ml Syringe IV 06/14/25 22:21 Q15MIN PRN BG 50-70 responsive npo pt Dextrose 50 ml 05/15/25 22:22 Dextrose 50%-Water Inj 50 Ml Syringe IV 06/14/25 22:21 Q15MIN PRN BG <50 OR BG <70 & pt unresponsive Glucagon 1 mg 05/15/25 22:22 Glucagon Inj 1 Mg Vial IM Q15MIN PRN BG <70, and no IV access Heparin Sodium (Porcine) 5,000 unit 05/16/25 09:00 05/17/25 08:11 Heparin Sod Inj 5000 Unit/Ml Vial SC 05/30/25 08:59 5,000 unit BID NATHALIA Administration Sodium Chloride 1,000 mls @ 100 mls/hr 05/15/25 22:30 05/17/25 05:39 Ns IV 06/14/25 22:29 100 mls/hr .Q10H NATHALIA Administration Magnesium Sulfate 4 gm in 50 mls @ 12.5 mls/hr 05/17/25 06:34 05/17/25 08:10 Magnesium Sulfate Ivpb IV 05/17/25 10:33 12.5 mls/hr X1 ONE Administration Insulin Human Lispro 0 unit 05/16/25 07:30 05/17/25 07:30 Insulin Lispro (Admelog) 1 Unit/0.01 Ml Unit SC 06/15/25 07:29 Not Given ACHS [facility] Protocol Pantoprazole Sodium 40 mg 05/17/25 09:00 05/17/25 08:11 Pantoprazole Inj 40 Mg Vial IVP 06/16/25 08:59 40 mg QDAY NATHALIA Administration Quetiapine Fumarate 50 mg 05/17/25 09:00 05/17/25 08:11 Quetiapine Fumarate 25 Mg Tablet PO 06/16/25 08:59 50 mg QDAY NATHALAI Administration Sertraline HCl 150 mg 05/17/25 09:00 05/17/25 08:12 Sertraline Hcl 25 Mg Tablet PO 06/16/25 08:59 150 mg QDAY NATHALIA Administration Thiamine HCl 200 mg 05/16/25 09:00 05/17/25 08:11 Thiamine Inj 100 Mg/Ml Vial 2 Ml IVP 06/15/25 08:59 200 mg QDAY NATHALIA Administration
--- NOTE | 2025-05-17 11:08 | ESDS_ITS ---
<Statement entered by Juvencio Mondragon MD - 05/24/25 17:36> I reviewed above note and agree with findings and plans. I have also personally examined the patient with medicine team and went over assessment and plan with medical team including purchasing intern and resident physician. <Statement entered by Brea Rainey MD - 05/17/25 20:34> I discussed with and supervised the purchasing intern physician who took care of this patient. I personally saw and examined the patient and discussed the assessment and plan with the entire medicine team, including my attending Dr. Mondragon, I agree with most of the assessment and plan as documented below Brea Rainey M.D. PGY-3 Planned Discharge Date 05/17/25 DS: Providers Provider Date of admission: 05/15/25 22:05 Primary care physician: Physician Deisi Primary/Family Admitting Provider: Sylvia Calles MD Attending Provider on Admission: Juvencio Mondragon MD Consults: 05/16/25 06:00 Consult to Neurology / Tele-Neurology Routine Comment: Acute encephalopathy Consulting Provider: Marcial Rainey Attending Provider on DC: Juvencio Mondragon MD Discharging Provider: Juvencio Mondragon MD DS: Diagnosis Problem List Completed Was Problem List Reviewed/Reconciled?: Yes Hospital Course Hospital Course Hospital course: 59 year-old male with past medical history of type 2 diabetes, hypertension, GERD, major depressive disorder brought in in the custody of the [facility]) to ED on 05/15/2025 for altered mental status. Had stopped taking his medications over the past few days, became increasingly disengaged, and eventually found in his cell by the officers looking confused, incontinent of urine, and not responding to questions. In the ED, CT head was negative for stroke. Initial vitals were within normal with BP of 109/73, pulse 79, RR 18, temp 98.4, saturating well on room air -Labs significant for leukocytosis of WBC 11.9, VBG pH 7.29, CHEM panel shows CO2 16.2, anion gap 17, bun 52, CR 1.8, eGFR 43, bun/Cr 29, glucose 152, calcium 10.2, ammonia <10, albumin 5.2, Beta-hydroxy 4.4. UA negative for UTI. UTOX is negative. Patient was 3L bolus LR and admitted for acute encephalopathy. The following day, on 05/16, patient's orientation improved to A&O x4. PARISH had resolved, BUN 52 to 38 and Cr 1.8 to 1.2 and eGFR improving from 43 to >60. Calcium also improved to 8.8 from 10.2. Bicarb improved from 16 to 21. Magnesium was low at 1.3 and repleted. WBC was slightly elevated at 11.9, but patient had no other signs of infection and was hemodynamically stable without fever. EEG was ordered to rule out seizure activity, neurology was consulted, recommended restarting home dose of zoloft and seroquel, and syphillus panel was ordered. On 05/17, patients mentation improved, wbc count was down at 8.9. Electrolyte and metabolic derangements were resolved. Syphillis serology came back negative. Patient was subsequently discharged in stable condition with neurology recommendations to follow up EEG on an outpatient basis. His encephalopathy was likely metabolic, given the multiple derangements on admission. This was likely secondary to poor intake. Poor intake may have also been due to an exacerbation of his MDD. Discharge diagnoses: #Acute encephalopathy #Metabolic Gap Acidosis #PARISH, likely prerenal #Major depressive disorder, resistant Recommendations: Follow up with PCP in a week with review of EEG results. Patient's plan and care discussed with my attending, Dr. Giancarlo MD. Burke Zavala, PGY-1 ([facility]) Time Spent with Patient Time attestation: Total time spent providing and/or coordinating discharge services: Time spent: Greater than 30 minutes Exam Vital Signs Temp Pulse Resp BP Pulse Ox O2 Del Method 96.9 F 63 14 149/86 H 98 Room Air 05/17/25 08:00 05/17/25 08:00 05/17/25 08:00 05/17/25 08:00 05/17/25 08:00 05/17/25 08:00 Narrative Exam General: Elderly aged patient, laying flat in bed with ankle cuff in place, more alert and conversational. HEENT: Mucosa moist. Uvula is surgically absent. Pupils are equal and reactive to light bilaterally Cardiovascular: Normal S1 and S2. Regular rate and rhythm. No murmur appreciated Respiratory: Clear to auscultation bilaterally without wheezes or crackles. Abdomen: Soft, nontender, not distended, Skin: Dry, no rashes or bruising Musculoskeletal: No gross injuries. Non edematous lower extremities. No irritation or skin breakdown noted from the ankle cuff. Neuro: Alert and oriented x4. No focal neuro deficits. Psych: Flat affect Discharge Plan Plan Patient Disposition: HOME (Self Care) Prescriptions/Referrals Prescriptions/Med Rec: Continued quetiapine [Seroquel] 25 mg tablet 50 mg PO QDAY losartan [Cozaar] 100 mg tablet 100 mg PO QDAY sertraline [Zoloft] 50 mg tablet 150 mg PO Q24H omeprazole 20 mg capsule,delayed release(DR/EC) 20 mg PO QDAY metformin 500 mg tablet 1,000 mg PO BID Referrals: No Primary/Family,Physician [Primary Care Provider] Patient/Caregiver Discharge Instructions Other Discharge Activity Instructions:: Resume previous medications. Stay orally hydrated to help with kidney function. Please see your PCP within 1 week. Print Language: [place] Stand Alone Forms: Elizabeth Award Info., Patient Portal Info Letter Discharge Order Discharge Orders: Discharge (Routine); Ordered 05/17/25 Ordered By: Brea Rainey Quality Discharge Quality Measures VTE prophylaxis
--- NOTE | 2025-05-17 11:36 | PD.RESPRO ---
Documentation for date of: 05/17/25 Subjective Subjective Interval history: Patient examined bedside today. No acute overnight events. Patient reports he is feeling okay and is wondering when to go home. No other complaints at this time. Exam Vital Signs Temp Pulse Resp BP Pulse Ox O2 Del Method 96.9 F 63 14 149/86 H 98 Room Air 05/17/25 08:00 05/17/25 08:00 05/17/25 08:00 05/17/25 08:00 05/17/25 08:00 05/17/25 08:00 Narrative Exam General: Elderly aged patient, laying flat in bed with ankle cuff in place, somnolent, keeps eyes closed during conversation. HEENT: Mucosa somewhat moist. Pupils are equal and reactive to light bilaterally Cardiovascular: Normal S1 and S2. Regular rate and rhythm. No murmur appreciated Respiratory: Clear to auscultation bilaterally without wheezes or crackles. Abdomen: Soft, nontender, not distended, Skin: Dry, no rashes or bruising Musculoskeletal: No gross injuries. Non edematous lower extremities. No irritation noted from the ankle cuff. Neuro: Alert and oriented x4. No focal neuro deficits. Psych: Flat affect Objective Labs 05/17/25 04:25 05/17/25 04:25 Labs: Laboratory Results - last 24 hr 05/16/25 05/17/25 17:50 04:25 WBC 8.9 RBC 3.17 L Hgb 10.1 L Hct 31.3 L MCV 99 MCH 31.9 MCHC 32.3 RDW Std Deviation 58.4 H Plt Count 260 Neut % (Auto) 58 Lymph % (Auto) 26 [place] % (Auto) 10 Eos % (Auto) 5 Baso % (Auto) 1 Neut # (Auto) 5.2 Lymph # (Auto) 2.3 [place] # (Auto) 0.9 H Eos # (Auto) 0.4 Baso # (Auto) 0.1 Immature Gran # (Auto) 0.04 H Absolute Nucleated RBC 0.00 Immature Gran % 0 Nucleated RBC % 0 Sodium 146 H Potassium 4.4 Chloride 112 H Carbon Dioxide 22.4 Anion Gap 12 BUN 22 Creatinine 1.0 Estim Creat Clear Calc 94.6 eGFR > 60 BUN/Creatinine Ratio 22 H Glucose 88 Calculated Osmolality 292 Calcium 9.2 Corrected Calcium 9.2 Phosphorus 2.4 Magnesium 1.3 L Total Bilirubin 0.7 AST 21 ALT 23 Alkaline Phosphatase 65 Total Protein 6.6 Albumin 4.0 Globulin 2.6 Albumin/Globulin Ratio 1.5 Syphilis Serology Nonreactive ABG Interpretation ABG results: 05/15/25 20:27 VBG pH 7.29 L VBG pCO2 37 VBG pO2 39 VBG Base Excess 18 H Quality Measures Quality Measures VTE prophylaxis Assessment & Plan Assessment Current Active Medications: Generic Name Dose Route Start Last Admin Trade Name Freq PRN Reason Stop Dose Admin Acetaminophen 650 mg 05/15/25 22:05 Acetaminophen 325 Mg Tablet PO 06/14/25 22:04 Q6H PRN Fever >101.5 Acetaminophen 650 mg 05/15/25 22:05 Acetaminophen 325 Mg Tablet PO 06/14/25 22:04 Q6H PRN PAIN SCALE 1-3 (mild Dextrose 25 ml 05/15/25 22:22 Dextrose 50%-Water Inj 50 Ml Syringe IV 06/14/25 22:21 Q15MIN PRN BG 50-70 responsive npo pt Dextrose 50 ml 05/15/25 22:22 Dextrose 50%-Water Inj 50 Ml Syringe IV 06/14/25 22:21 Q15MIN PRN BG <50 OR BG <70 & pt unresponsive Glucagon 1 mg 05/15/25 22:22 Glucagon Inj 1 Mg Vial IM Q15MIN PRN BG <70, and no IV access Heparin Sodium (Porcine) 5,000 unit 05/16/25 09:00 05/17/25 08:11 Heparin Sod Inj 5000 Unit/Ml Vial SC 05/30/25 08:59 5,000 unit BID NATHALIA Administration Sodium Chloride 1,000 mls @ 100 mls/hr 05/15/25 22:30 05/17/25 05:39 Ns IV 06/14/25 22:29 100 mls/hr .Q10H NATHALIA Administration Insulin Human Lispro 0 unit 05/16/25 07:30 05/17/25 07:30 Insulin Lispro (Admelog) 1 Unit/0.01 Ml Unit SC 06/15/25 07:29 Not Given ACHS [facility] Protocol Pantoprazole Sodium 40 mg 05/17/25 09:00 05/17/25 08:11 Pantoprazole Inj 40 Mg Vial IVP 06/16/25 08:59 40 mg QDAY NATHALIA Administration Quetiapine Fumarate 50 mg 05/17/25 09:00 05/17/25 08:11 Quetiapine Fumarate 25 Mg Tablet PO 06/16/25 08:59 50 mg QDAY NATHALIA Administration Sertraline HCl 150 mg 05/17/25 09:00 05/17/25 08:12 Sertraline Hcl 25 Mg Tablet PO 06/16/25 08:59 150 mg QDAY NATHALIA Administration Thiamine HCl 200 mg 05/16/25 09:00 05/17/25 08:11 Thiamine Inj 100 Mg/Ml Vial 2 Ml IVP 06/15/25 08:59 200 mg QDAY NATHALIA Administration Plan Assessment: Mr. Malcolm is 59 year-old male with past medical history of type 2 diabetes, hypertension, major depressive disorder brought in in the custody of the [facility]) to ED on 05/15/2025 for altered mental status. Admitted for acute encephalopathy evaluation and management. #Acute encephalopathy PARISH in the setting of ongoing encephalopathy and dehydration. DDX: infections, metabolic, toxins/drugs, electrolytes,uremia, seizure Per [facility] for the last few days patient mentation has been poor, low interaction, not eating properly and does not precipitate any daily activities. Low suspicion for infectious cause, although leukocytosis WBC 11.9, afebrile, no sick contacts, no urinary symptoms, vitals within normal limits ,UA negative FOR UTI. Not toxin/drugs related: UTOX negative, low concern for home medication toxicity. Not cause by electrolyte disturbance, sodium and potassium normal with mild hypercalcemia. HyperCa not high enough to cause AMS. Likely metabolic: Mild hyperglycemia 152 with mild anion gap metabolic acidosis with VBG 7.29, HCO3 16.2, AG 17. latic acid 0.9 Unlikely uremic encephalopathy as patient had slight uremia in the 50s Patient seems to display flat affect He reports that he was not taking his home medicines for unknown apparent reason as he did not want to disclose B12 and folate WNL UDS negative Syphilis negative Blood cultures no growth after 1 day Plan: ? Follow up EEG results outpatient ? Seizure precautions ? Recommend to resume home Zoloft and Seroquel ? Neurochecks every 4 hours ? Okay for DC from neuro standpoint #Metabolic Gap Acidosis #PARISH, likely prerenal secondary to #Primary hypertension #Major depressive disorder, resistant Above handled by primary hospitalist team Patient seen and care discussed with my attending physician, Dr. Redd Kaur, PGY-2 This document was transcribed using voice recognition technology. Minor inaccuracies may be present. Attending Provider Attestation/Addendum I personally have seen and examined the patient at the bedside and I agreed with the resident's findings, assessment and plan of care. His mental status is back to baseline. EEG resulted normal. Patient is stable from neurology standpoint for discharge. He is advised to continue with sertraline and quetiapine as before. Follow-up with neurology as needed
[2025-05-17 11:53] VITALS: BP 147/76; PULSE 75; RESP 17; TEMP 36.1; O2SAT 97
== END 2025-05-17 13:00 | disposition home or self-care (01) | DRG 682 ==
LOC: SERX 21:09 → SERHOLD 22:50 → S2NX 05-16 00:03
PROVIDERS: Admitting Provider Student in an Organized Health Care Education/Training Program; Emergency Provider Emergency Medicine; Visit Provider Internal Medicine
DX: N17.9 Acute kidney failure, unspecified (principal); G93.41 Metabolic encephalopathy; E87.20 Acidosis, unspecified; F03.93 Unspecified dementia, unspecified severity, with mood disturbance; I10 Essential (primary) hypertension; E86.0 Dehydration; E11.65 Type 2 diabetes mellitus with hyperglycemia; F32.9 Major depressive disorder, single episode, unspecified; E83.52 Hypercalcemia; R32 Unspecified urinary incontinence; F17.200 Nicotine dependence, unspecified, uncomplicated; Z79.84 Long term (current) use of oral hypoglycemic drugs; Z91.128 Patient's intentional underdosing of medication regimen for other reason
CPT/HCPCS: 36415; 70450; 80053; 80069; 80307; 80320; 80329; 81001; 82010; 82140; 82550; 82607; 82746; 82803; 83036; 83605; 83735; 84100; 84443; 84484; 85025; 86780; 87040; 93005; 95816; 96360; 96361; 99284; J1644; J2470; J3411; J3475; J7030; J7120; A9270; G0480